=== PATIENT | male | born 2000 | race Caucasian/White ===

== ENCOUNTER 2023-03-02 17:27 | Emergency (ER) | payer OTHER ==
[2023-03-02 17:38] VITALS: BP 141/87; PULSE 94; RESP 16; TEMP 98.6; BMI 25.4
== END 2023-03-02 19:11 | disposition home or self-care (01) ==
LOC: FER 17:27
DX: S02.2XXA Fracture of nasal bones, initial encounter for closed fracture (principal); J34.9 Unspecified disorder of nose and nasal sinuses; K13.0 Diseases of lips; S00.81XA Abrasion of other part of head, initial encounter; S00.511A Abrasion of lip, initial encounter; W01.0XXA Fall on same level from slipping, tripping and stumbling without subsequent striking against object, initial encounter; Y93.39 Activity, other involving climbing, rappelling and jumping off
CPT/HCPCS: 70486-TC; 99284-25